=== PATIENT | male | born 1970 | race African-American/Black ===

== ENCOUNTER 2016-09-02 22:18 | Emergency (ER) | payer OTHER ==
[~2016-09-02] VITALS: Ht 170.2 cm; Wt 108.0 kg
[2016-09-02 23:15] LABS: CARBON DIOXIDE (BICARBONATE) 32.8 MEQ/L (20-31); MCH 26.3 PG (29.0-34.0); MCHC 33.2 G/DL (30.0-36.0); MCV 79.1 FL (86-99); MEAN PLAT.VOLUME 9.4 uM^3 (9.0-12.4); PLATELET COUNT 289 K/uL (156-360); RBC DIS.WIDTH-CV 13.1 % (11.8-14.6); RBC DIS.WIDTH-SD 37.2 % (39-53); RED BLOOD COUNT 5.56 M/uL (4.00-5.50); WHITE BLOOD COUNT 10.2 K/uL (4.1-10.2)
[2016-09-02 23:24] LABS: CHLORIDE 98 mEq/L (99-109); SODIUM 137 mEq/L (136-147)
[2016-09-02 23:25] LABS: GLUCOSE 344 mg/dL (70-99)
[2016-09-02 23:26] LABS: POINT-OF-CARE METER ID UU14100415
[2016-09-02 23:27] LABS: ANION GAP 15 MEQ/L (2-14)
[2016-09-02 23:30] LABS: UREA NITROGEN (BUN) 11 mg/dL (9-23)
[2016-09-02 23:32] LABS: GFR ESTIMATE (CALCULATED) 46 mL/min/
[2016-09-03 00:37] LABS: ADD MIUA? YES; BILIRUBIN NEGATIVE; BLOOD SMALL; COLOR YELLOW ((YELLOW)); GLUCOSE (STRIP) >=500; KETONES 5; LEUKOCYTES NEGATIVE; NITRITE NEGATIVE; PROTEIN (STRIP) NEGATIVE; UROBILINOGEN 0.2 MG/DL (0.2-1.0)
[2016-09-03 01:08] LABS: EPITHELIAL CELLS NONE SEEN /HPF; WHITE BLOOD CELLS NONE SEEN /HPF (0-5)
[2016-09-03 01:09] LABS: AMORPHOUS PHOSPHATE CRYSTALS 2+; BACTERIA 2+ /HPF; CRYSTALS PRESENT; MUCUS 1+ /LPF; UCUL ADDED? NO
[2016-09-03] MEDS ORDERED: LEVAQUIN750 MG PO (01:41)
[2016-09-03] MEDS ORDERED: TORADOL10 MG PO (01:42)
[2016-09-03] MEDS ORDERED: ZOFRAN4 MG PO (01:42)
[2016-09-03] MEDS ORDERED: ULTRAM50 MG PO (01:42)
[2016-09-03] MEDS ORDERED: FLOMAX0.4 MG PO (01:42)
[2016-09-03 02:05] VITALS: BP 145/77
== END 2016-09-03 02:07 | disposition home or self-care (01) ==
LOC: EME 22:18
PROVIDERS: Emergency Medicine
DX: N20.0 Calculus of kidney (principal); F17.200 Nicotine dependence, unspecified, uncomplicated
CPT/HCPCS: 74176; 80048; 81003; 82010; 82803; 82948; 85027; 99281; 99285; J1885; J2405; J3010; J7030

== ENCOUNTER 2017-05-27 18:32 | Emergency (ER) | payer OTHER ==
[~2017-05-27] VITALS: Ht 170.2 cm; Wt 110.5 kg
[~2017-05-27 18:32] MED LIST: FLOMAX0.4 MG PO; LEVAQUIN750 MG PO; TORADOL10 MG PO; ULTRAM50 MG PO; ZOFRAN4 MG PO
[2017-05-27 19:25] LABS: MCH 26.2 PG (29.0-34.0); MCHC 33.5 G/DL (30.0-36.0); MCV 78.3 FL (86-99); MEAN PLAT.VOLUME 9.3 uM^3 (9.0-12.4); PLATELET COUNT 279 K/uL (156-360); RBC DIS.WIDTH-CV 12.8 % (11.8-14.6); RBC DIS.WIDTH-SD 36.5 % (39-53); RED BLOOD COUNT 5.49 M/uL (4.00-5.50)
[2017-05-27 19:33] LABS: CHLORIDE 96 mEq/L (99-109); POTASSIUM 4.5 mEq/L (3.7-5.4); SODIUM 134 mEq/L (136-147)
[2017-05-27 19:34] LABS: GLUCOSE 343 mg/dL (70-99)
[2017-05-27 19:36] LABS: ANION GAP 13 MEQ/L (2-14)
[2017-05-27] MEDS ORDERED: ASPIR-LOW81 MG PO (19:37)
[2017-05-27 19:38] LABS: GFR ESTIMATE (CALCULATED) > 59 mL/min/ (58.99-99999)
[2017-05-27] MEDS ORDERED: METFORMIN HCL1000 MG PO (19:38)
[2017-05-27] MEDS ORDERED: AMLODIPINE BESY10 MG PO (19:38)
[2017-05-27 19:39] LABS: UREA NITROGEN (BUN) 10 mg/dL (9-23)
[2017-05-27] MEDS ORDERED: ATORVASTATIN CA80 MG PO (19:39)
[2017-05-27] MEDS ORDERED: HUMULIN 70100 UNIT/2 SC ×2 (19:40)
[2017-05-27 19:45] LABS: TROP-I INTERPRETATION NEGATIVE; TROPONIN-I < 0.01 ng/mL (0.0-0.30)
[2017-05-27 20:55] LABS: ADD MIUA? NO; BILIRUBIN NEGATIVE; BLOOD NEGATIVE; COLOR STRAW ((YELLOW)); GLUCOSE (STRIP) >=500; KETONES 5; LEUKOCYTES NEGATIVE; NITRITE NEGATIVE; PROTEIN (STRIP) NEGATIVE; SPECIFIC GRAVITY 1.018 (1.000-1.030)
[2017-05-27] MEDS ORDERED: ZOFRAN ODT4 MG PO (21:34)
[2017-05-27] MEDS ORDERED: ANTIVERT25 MG PO (21:34)
[2017-05-27 21:52] LABS: POINT-OF-CARE METER ID UU13113800
[2017-05-27 22:13] VITALS: BP 146/89
== END 2017-05-27 22:42 | disposition home or self-care (01) ==
LOC: EME 18:32
PROVIDERS: Physician Assistant
DX: R42 Dizziness and giddiness (principal); H69.81 Other specified disorders of Eustachian tube, right ear; R51 Headache; E86.0 Dehydration; I10 Essential (primary) hypertension; E78.5 Hyperlipidemia, unspecified; E11.65 Type 2 diabetes mellitus with hyperglycemia; Z79.4 Long term (current) use of insulin
CPT/HCPCS: 70450; 71020; 80048; 81003; 82948; 84484; 85027; 99281; 99285

== ENCOUNTER 2017-06-03 21:08 | Emergency (ER) | payer OTHER ==
[~2017-06-03] VITALS: Ht 170.2 cm; Wt 110.5 kg
[~2017-06-03 21:08] MED LIST changes: +AMLODIPINE BESY10 MG PO; +ANTIVERT25 MG PO; +ASPIR-LOW81 MG PO; +ATORVASTATIN CA80 MG PO; +HUMULIN 70100 UNIT/2 SC; +METFORMIN HCL1000 MG PO; +ZOFRAN ODT4 MG PO
[2017-06-03 21:33] LABS: HEMATOCRIT 46.4 % (38.0-50.0); HEMOGLOBIN 15.7 G/DL (12.5-16.6); MCH 26.1 PG (29.0-34.0); MCHC 33.8 G/DL (30.0-36.0); MCV 77.1 FL (86-99); RBC DIS.WIDTH-CV 12.7 % (11.8-14.6); RBC DIS.WIDTH-SD 35.5 % (39-53); RED BLOOD COUNT 6.02 M/uL (4.00-5.50); WHITE BLOOD COUNT 7.6 K/uL (4.1-10.2)
[2017-06-03 21:41] LABS: PLATELET COUNT 369 K/uL (156-360)
[2017-06-03 21:44] LABS: CHLORIDE 94 mEq/L (99-109); POTASSIUM 3.3 mEq/L (3.7-5.4); SODIUM 131 mEq/L (136-147)
[2017-06-03 21:45] LABS: GLUCOSE 222 mg/dL (70-99)
[2017-06-03 21:49] LABS: CREATININE 0.9 mg/dL (0.6-1.3); GFR ESTIMATE (CALCULATED) > 59 mL/min/ (58.99-99999)
[2017-06-03 21:50] LABS: UREA NITROGEN (BUN) 10 mg/dL (9-23)
[2017-06-03 21:58] LABS: TROP-I INTERPRETATION NEGATIVE; TROPONIN-I < 0.01 ng/mL (0.0-0.30)
[2017-06-04 04:39] VITALS: BP 152/95
== END 2017-06-04 04:40 | disposition short-term general hospital (02) ==
LOC: EME 21:08 → RME 21:08
PROVIDERS: Nurse Practitioner Family
DX: I63.9 Cerebral infarction, unspecified (principal); I10 Essential (primary) hypertension; E78.5 Hyperlipidemia, unspecified; E11.9 Type 2 diabetes mellitus without complications; Z79.82 Long term (current) use of aspirin; Z79.84 Long term (current) use of oral hypoglycemic drugs; Z86.73 Personal history of transient ischemic attack (TIA), and cerebral infarction without residual deficits
CPT/HCPCS: 70450; 71020; 80048; 84484; 85027; 87502; 93005; 99281; 99285; J2405; J2765; J7030